=== PATIENT | male | born 1985 | race Caucasian/White ===

== ENCOUNTER 2021-09-01 17:50 | Emergency (ER) | payer MEDICAID, OTHER ==
[~2021-09-01] VITALS: Ht 170.2 cm; Wt 172.4 kg
[2021-09-01] MEDS ORDERED: TETANUS-DIPTH-ACEL PERTUSSIS 0.5ML SYR Tdap IM ONE (18:30)
[2021-09-01 20:41] VITALS: BP 137/90
== END 2021-09-01 20:42 | disposition home or self-care (01) ==
LOC: ER 17:50
DX: S00.01XA Abrasion of scalp, initial encounter (principal); W25.XXXA Contact with sharp glass, initial encounter; Y93.89 Activity, other specified; Y92.89 Other specified places as the place of occurrence of the external cause; Y99.8 Other external cause status